=== PATIENT | female | born 1955 | race Caucasian/White ===

== ENCOUNTER → 2018-08-21 | Outpatient (CLI) | payer MEDICARE | END | disposition home or self-care (01) | LOC: CFH 07:37 | PROVIDERS: ATTEND Nurse Practitioner Family | DX: R07.9 Chest pain, unspecified (principal) | CPT/HCPCS: 78452; 93017; A9502 ==

== ENCOUNTER → 2019-07-11 | Outpatient (CLI) | payer MEDICARE | END | disposition home or self-care (01) | LOC: CFH 08:03 | PROVIDERS: ATTEND Nurse Practitioner Family | DX: I08.8 Other rheumatic multiple valve diseases (principal) | CPT/HCPCS: 93306 ==

== ENCOUNTER 2020-02-09 11:02 | Emergency (ER) | payer MEDICARE ==
[~2020-02-09] VITALS: Ht 160 cm; Wt 73.0 kg
[2020-02-09] MEDS ORDERED: ASPIRIN 81 MG TABLET CHEW ONE (11:39)
--- NOTE | 2020-02-09 11:41 | NUR ---
PT PRESENTING FOR FLUTTERING FEELING IN CHEST X3 DAYS, SOMETIMES CAUSING SOB. NO C/O PAIN, N/V, SWEATING. CONNECTED TO ALL MONITORING, VSS AT THIS TIME. IV PLACED, LABS DRAWN. PT MEDICATED PER OCT. ORDERS RECEIVED. RAD AT BEDSIDE. CALL LIGHT WTIHIN REACH. BLANKET PROVIDED FOR COMFORT. WILL CONTINUE TO MONITOR.
[2020-02-09 11:51] LABS: CHLORIDE 109 mmol/L (98-107)
[2020-02-09 11:55] LABS: BASOPHILS # (AUTO) 0.07 x10^3/uL (0-0.1); BASOPHILS % (AUTO) 1 % (0-1); EOSINOPHILS # (AUTO) 0.18 x10^3/uL (0-0.4); EOSINOPHILS % (AUTO) 2 % (1-7); LYMPHOCYTES # (AUTO) 2.16 x10^3/uL (1-3.4); LYMPHOCYTES % (AUTO) 23 % (22-44); MD NO; MEAN CORPUSCULAR VOLUME 87.9 fL (80-100); MEAN PLATELET VOLUME 7.8 fL (7.4-10.4); MONOCYTES # (AUTO) 0.57 x10^3/uL (0.2-0.8); MONOCYTES % (AUTO) 6 % (2-9); NEUTROPHILS # (AUTO) 6.44 x10^3/uL (1.8-6.8); NEUTROPHILS % (AUTO) 68 % (42-75); PLATELET COUNT 385 x10^3/uL (130-400); RED BLOOD COUNT 5.37 x10^6/uL (3.82-5.3); RED CELL DISTRIBUTION WIDTH 14.7 % (9.6-15.2)
[2020-02-09 11:57] LABS: ALBUMIN 4.3 g/dL (3.4-5.0); ANION GAP 7 mmol/L (5-15); CALCIUM 9.2 mg/dL (8.5-10.1); CREATININE 0.72 mg/dL (0.55-1.02)
[2020-02-09] MEDS ORDERED: ASPIRIN 81 MG TABLET CHEW PO ONE (12:00)
[2020-02-09 12:15] LABS: TROPONIN I < 0.015 ng/mL (0.000-0.045)
[2020-02-09] MEDS ORDERED: SODIUM CHLORIDE FLUSH 10ML SYR IVF ONE (12:30)
--- NOTE | 2020-02-09 12:32 | NUR ---
ALL RESULTS BACK AT THIS TIME, CHART UP FOR RECHECK
--- NOTE | 2020-02-09 12:43 | NUR ---
AWAITING CALL BACK FROM CARDIOLOGY
--- NOTE | 2020-02-09 12:43 | NUR ---
PA TO BEDSIDE TO UPDATE PT ON POC
[2020-02-09 13:24] VITALS: BP 134/84
== END 2020-02-09 13:26 | disposition home or self-care (01) ==
LOC: ED 12:29
DX: R00.2 Palpitations (principal); R07.89 Other chest pain; I10 Essential (primary) hypertension; E03.9 Hypothyroidism, unspecified
CPT/HCPCS: 36415; 71045; 80048; 82040; 83880; 84439; 84443; 84484; 85025; 93005; 99285

== ENCOUNTER → 2021-04-12 | Outpatient (CLI) | payer MEDICARE ==
[2021-04-12 10:11] LABS: ALANINE AMINOTRANSFERASE 33 U/L (12-78); ALBUMIN 3.9 g/dL (3.4-5.0); CALCIUM 9.2 mg/dL (8.5-10.1); CHOLESTEROL, TOTAL 95 mg/dL (140-239); CREATININE 0.63 mg/dL (0.55-1.02); TRIGLYCERIDES 51 mg/dL (50-200); VLDL CHOLESTEROL 10 mg/dL (0-25)
[2021-04-12 10:18] LABS: ALKALINE PHOSPHATASE 93 U/L (45-117); ANION GAP 3 mmol/L (5-15); BILIRUBIN,TOTAL 1.1 mg/dL (0.2-1.0); CHLORIDE 110 mmol/L (98-107); CHOL/HDL RATIO 1.7; HDL CHOL % 60 % (28-40); HDL CHOLESTEROL (DIRECT) 57 mg/dL (40-60); LDL CHOLESTEROL,CALCULATED 28 mg/dL (54-169); LDL/HDL RATIO 0.5 (0.5-3.0); TOTAL PROTEIN 7.2 g/dL (6.4-8.2)
== END | disposition home or self-care (01) ==
LOC: LAB 09:44
PROVIDERS: ATTEND Internal Medicine Cardiovascular Disease
DX: I10 Essential (primary) hypertension (principal); I25.10 Atherosclerotic heart disease of native coronary artery without angina pectoris; I35.1 Nonrheumatic aortic (valve) insufficiency; R00.2 Palpitations; R07.9 Chest pain, unspecified; R94.31 Abnormal electrocardiogram [ECG] [EKG]
CPT/HCPCS: 36415; 80053; 80061